=== PATIENT | female | born 1975 | race Caucasian/White ===

== ENCOUNTER → 2020-09-07 | Outpatient (CLI) | payer MEDICARE, OTHER | LOC: KOH-I 08:52 | DX: M25.571 Pain in right ankle and joints of right foot (principal); M25.572 Pain in left ankle and joints of left foot; M79.671 Pain in right foot; M79.672 Pain in left foot | CPT/HCPCS: 73610; 73630 ==

== ENCOUNTER 2021-11-23 14:53 | Emergency (ER) | payer MEDICARE, OTHER, MEDICAID ==
[2021-11-23 17:13] LABS: HEMOGLOBIN 14.4 gm/dl (12.3-15.3); RED BLOOD COUNT 4.6 M/UL (4.00-5.10); WHITE BLOOD COUNT 7.1 K/UL (4.5-11.0)
[2021-11-23 17:40] LABS: BUN/CREATININE RATIO 21 (0-10)
== END 2021-11-23 20:40 | disposition home or self-care (01) ==
LOC: ER1 14:53
PROVIDERS: Physician Assistant
DX: R07.9 Chest pain, unspecified (principal); E78.5 Hyperlipidemia, unspecified; I10 Essential (primary) hypertension; E89.0 Postprocedural hypothyroidism; Z90.49 Acquired absence of other specified parts of digestive tract
CPT/HCPCS: 71045; 80053; 82550; 82553; 84439; 84443; 84484; 84703; 85025; 85379; 93005; 99285

== ENCOUNTER → 2022-03-01 | Outpatient (CLI) | payer MEDICARE, OTHER | LOC: HEART 5 09:00 | DX: J45.909 Unspecified asthma, uncomplicated (principal) | CPT/HCPCS: J7674 ==